=== PATIENT | male | born 2000 | race Caucasian/White ===

== ENCOUNTER 2023-01-13 15:01 | Inpatient (IN) | payer OTHER ==
[2023-01-13 15:48] LABS: Absolute Lymphocytes (CBC) 1.4 K/uL (0.7-4.9); Hematocrit 22.7 % (39.6-49.0); Lymphocytes % 23.8 % (15.3-44.8); MCV 92.5 fL (80-100); MPV 7.7 fL (7.6-11.3); Platelets 244 thou/uL (152-406); RBC Red Blood Cell Count 2.46 M/uL (4.33-5.43)
[2023-01-13 15:54] LABS: Protime INR 1.05
[2023-01-13] MEDS ORDERED: NA CHLORIDE 0.9% 1,000 ML ONE (16:04)
[2023-01-13] MEDS ORDERED: PANTOPRAZOLE 40 MG INJ ONE (16:04)
[2023-01-13 16:08] LABS: Albumin 3.5 g/dL (3.4-5.0); Bilirubin Total 0.2 mg/dL (0.2-1.0); Potassium 3.9 mEq/L (3.5-5.1); Protein, Total 6.3 g/dL (6.4-8.2)
--- NOTE | 2023-01-13 16:39 | RAD REPORT ---
EXAM DESCRIPTION: CT - Abdomen Pelvis W Contrast - 01/13/2023 4:03 pm CLINICAL HISTORY: ABD PAIN COMPARISON: No comparisons TECHNIQUE: Thin cut axial CT imaging of the abdomen and pelvis was performed following intravenous a dministration of 100 mL Isovue 300. Multiplanar reformats were generated and reviewed. All CT scans are performed using dose optimization technique as appropriate and may include automated exposure control or mA/KV adjustment according to patient size. FINDINGS: No suspicious findings in the lung bases. The liver, spleen, and pancreas show no suspicious findings. Gallbladder and biliary tree are also wi thout suspicious finding. Symmetric renal function is seen with no hydronephrosis or suspicious renal mass. No dilated bowel loops or bowel wall thickening. No free air, free fluid or inflammatory stranding. N o hernia, mass or bulky lymphadenopathy. The urinary bladder is without significant finding. No suspicious bony findings. Grade 1 spondylolisthesis at L5-S1, with degree of anterolisthesis measu ring approximately 8 millimeter. IMPRESSION: No acute intra-abdominal process. Grade 1 spondylolisthesis at L5-S1, favored to be no related to stress injury.
--- NOTE | 2023-01-13 16:59 | ER ---
Nurse's Notes [facility] Name: Steve Peter Age: 22 yrs Sex: Male : 2000 Arrival Date: 01/13/2023 Time: 15:01 Bed 17 Private MD: Diagnosis: GI Bleed, anemia, epigastric pain Presentation: 01/13 15:07 Chief complaint: Patient states: bloody stool x2 weeks, black in color. Recently me1 started having dizziness. Coronavirus screen: Vaccine status: Patient reports being unvaccinated. Ebola Screen: No symptoms or risks identified at this time. Initial Sepsis Screen: Does the patient meet any 2 criteria? No. Patient's initial sepsis screen is negative. Does the patient have a suspected source of infection? No. Patient's initial sepsis screen is negative. Risk Assessment: Do you want to hurt yourself or someone else? Patient reports no desire to harm self or others. Onset of symptoms is unknown. 15:07 Method Of Arrival: Amb[place] [facility] [place] 15:07 Acuity: ELMER 3 me1 Triage Assessment: 15:09 General: Appears comfortable, well groomed, well developed, well nourished, Behavior is me1 calm, cooperative, appropriate for age, Reports black stools x 2 weeks with recent onset of dizziness. Pain: Complains of pain in epigastric area Pain does not radiate. Pain currently is 4 out of 10 on a pain scale. Quality of pain is described as crampy, Pain began 2 weeks ago Is continuous. Neuro: Level of Consciousness is awake, alert, obeys commands, Oriented to person, place, time, situation, Appropriate for age. Cardiovascular: Capillary refill < 3 seconds Patient's skin is warm and dry. Respiratory: Airway is patent Respiratory effort is even, unlabored, Respiratory pattern is regular, symmetrical. GI: Abdomen is flat, Reports bloody stool. Historical: - Allergies: 15:09 No Known Allergies; me1 - Home Meds: 15: None [Active]; me1 - PMHx: 15:09 asthma; me1 - PSHx: 15:09 None; me1 - Immunization history:: Adult Immunizations up to date. - Social history:: Smoking status: Patient denies any tobacco usage or history of. Screenin:[facility] ED Fall Risk Assessment (Adult) History of falling in the last 3 months, ms1 including since admission No falls in past 3 months (0 pts) Confusion or Disorientation No (0 pts) Intoxicated or Sedated No (0 pts) Impaired Gait No (0 pts) Mobility Assist Device Used No (0 pt) Altered Elimination No (0 pt) Score/Fall Risk Level 0 - 2 = Low Risk. 15:13 Abuse screen: Denies threats or abuse. Nutritional screening: No deficits noted. ms1 Tuberculosis screening: No symptoms or risk factors identified. Assessment: 15:12 General: see triage assessment. ms1 20:11 General: Blood transfusion started. See transfusion administration record. . iw 21:00 Reassessment: No changes from previously documented assessment. Patient and/or family vc1 updated on plan of care and expected duration. Pain level reassessed. Patient is alert, oriented x 3, equal unlabored respirations, skin warm/dry/pink. 22:00 Reassessment: No changes from previously documented assessment. Patient and/or family vc1 updated on plan of care and expected duration. Pain level reassessed. Patient is alert, oriented x 3, equal unlabored respirations, skin warm/dry/pink. 23:00 Reassessment: No changes from previously documented assessment. Patient and/or family vc1 updated on plan of care and expected duration. Pain level reassessed. Patient is alert, oriented x 3, equal unlabored respirations, skin warm/dry/pink. Vital Signs: 15:07 BP 143 / 64; Pulse 104; Resp 17; Temp 98.3(O); Pulse Ox 98% on R/A; Weight 77.11 kg; ms1 Height 6 ft. 2 in. ; 15:53 BP 110 / 66; Pulse 98; Resp 16; Pulse Ox 100% on R/A; me1 21:00 BP 115 / 50; Pulse 70; Resp 15; Pulse Ox 100% ; vc1 22:00 BP 118 / 54; Pulse 56; Resp 15; Pulse Ox 99% ; vc1 23:00 BP 113 / 56; Pulse 79; Resp 18; Pulse Ox 99% ; vc1 15:07 Body Mass Index 21.83 (77.11 kg, 187.96 cm) [facility] [place] ED Course: 15:06 Patient arrived in ED. ms1 15:07 Danielle Hanson, SAIMA is Primary Nurse. ms1 15:09 Triage completed. me1 15:09 Arm band placed on Patient placed in an exam room. me1 15:12 Patient has correct armband on for positive identification. Placed in gown. Bed in low me1 position. Call light in reach. Side rails up X 1. Provided Education on: POC. Verbalized understanding.. 15:12 No provider procedures requiring assistance completed. me1 15:14 Keith Banegas MD is Attending Physician. sp3 15:41 Inserted saline lock: 22 gauge in right antecubital area, using aseptic technique. me1 15:42 CBC with Diff Sent. me1 15:42 CMP Sent. me1 15:42 Lipase Sent. me1 16:04 CT Abd/Pelvis - IV Contrast Only In Process Unspecified. EDMS 16:53 ABO/RH typing Sent. me1 16:53 Antibody Screen Sent. me1 17:52 Attending Physician role handed off by Keith Banegas MD ms3 17:52 Shyam Levin DO is Attending Physician. ms3 18:25 Albino Kern MD is Hospitalizing Provider. ms3 20:11 PRBC Sent. iw 23:40 Patient admitted, IV remains in place. vc1 01/14 07:06 Primary Nurse role handed off by Danielle Hanson RN ll1 07:06 Cecil Stafford, SAIMA is Primary Nurse. ll1 Administered Medications: 01/13 16:21 Drug: NS 0.9% IV 1000 ml IV at 1 bolus Per protocol; 1000 mL bolus Route: IV; Rate: 1 me1 bolus; Site: right antecubital; 17:30 Follow up: IV Status: Completed infusion iw 16:21 Drug: Pantoprazole IVP 40 mg IVP once Route: IVP; Site: right antecubital; me1 16:38 Follow up: Response: No adverse reaction me1 Medication: 15:12 VIS not applicable for this client. me1 Outcome: 16:58 ER care complete, transfer ordered by . sp3 18:25 Decision to Hospitalize by Provider. ms3 23:39 Admitted to ER Hold. Please see [facility] for further documentation. vc1 23:39 Condition: good 23:39 Instructed on the need for admit, 01/14 14:20 Patient left the ED. ll1 Signatures: Dispatcher [employer] Rosemarie Gregory RN RN Abiola Dorany, RN RN ll1 Shyam Levin, DO MAKI ms3 Keith Banegas MD MD sp3 Magali Caal, RN RN vc1 Danielle Hanson, RN RN me1
--- NOTE | 2023-01-13 16:59 | EDPHYS ---
Physician Documentation [facility] Name: Steve Peter Age: 22 yrs Sex: Male : 2000 Arrival Date: 01/13/2023 Time: 15:01 Bed 17 Private MD: ED Physician Shyam Levin HPI: 01/13 15:43 This 22 yrs old Male presents to ER via Ambulatory with complaints of Bloody Stools, sp3 Dizziness. 15:43 22-year-old male with a history of asthma presents from local [facility] for [place] sp3 complaint melena, epigastric pain for 2 weeks. Patient was seen in the [facility] there and was sent to the ER. Patient denies any other symptoms including vomiting, back pain, lower abdominal pain, syncope, near syncope, lightheadedness, neurological symptoms, intake of Pepto-Bismol or similar products, trauma, ingestion of object or substances, or any other signs or symptoms on ROS at this time. No prior history of similar symptoms in the past.. Historical: - Allergies: 15:09 No Known Allergies; me1 - Home Meds: 15:09 None [Active]; me1 - PMHx: 15:09 asthma; me1 - PSHx: 15:09 None; me1 - Immunization history:: Adult Immunizations up to date. - Social history:: Smoking status: Patient denies any tobacco usage or history of. ROS: 15:44 Constitutional: Negative for fever, chills, and weight loss, Eyes: Negative for injury, sp3 pain, redness, and discharge, ENT: Negative for injury, pain, and discharge, Neck: Negative for injury, pain, and swelling, Cardiovascular: Negative for chest pain, palpitations, and edema, Respiratory: Negative for shortness of breath, cough, wheezing, and pleuritic chest pain, Back: Negative for injury and pain, MS/Extremity: Negative for injury and deformity, Skin: Negative for injury, rash, and discoloration, Neuro: Negative for headache, weakness, numbness, tingling, and seizure, Psych: Negative for depression, anxiety, suicide ideation, homicidal ideation, and hallucinations, Allergy/Immunology: Negative for hives, rash, and allergies, Endocrine: Negative for neck swelling, polydipsia, polyuria, polyphagia, and marked weight changes, Hematologic/Lymphatic: Negative for swollen nodes, abnormal bleeding, and unusual bruising, 15:44 All other systems are negative, Exam: 15:44 Constitutional: This is a well developed, well nourished patient who is awake, alert, sp3 and in no acute distress. Head/Face: Normocephalic, atraumatic. Eyes: Pupils equal round and reactive to light, extra-ocular motions intact. Lids and lashes normal. Conjunctiva and sclera are non-icteric and not injected. Cornea within normal limits. Periorbital areas with no swelling, redness, or edema. Neck: Trachea midline, no thyromegaly or masses palpated, and no cervical lymphadenopathy. Supple, full range of motion without nuchal rigidity, or vertebral point tenderness. No Meningismus. Chest/axilla: Normal chest wall appearance and motion. Nontender with no deformity. No lesions are appreciated. Cardiovascular: Regular rate and rhythm with a normal S1 and S2. No gallops, murmurs, or rubs. Normal PMI, no JVD. No pulse deficits. Respiratory: Lungs have equal breath sounds bilaterally, clear to auscultation and percussion. No rales, rhonchi or wheezes noted. No increased work of breathing, no retractions or nasal flaring. Back: No spinal tenderness. No costovertebral tenderness. Full range of motion. Skin: Warm, dry with normal turgor. Normal color with no rashes, no lesions, and no evidence of cellulitis. MS/ Extremity: Pulses equal, no cyanosis. Neurovascular intact. Full, normal range of motion. Neuro: Awake and alert, GCS 15, oriented to person, place, time, and situation. Cranial nerves II-XII grossly intact. Motor strength 5/5 in all extremities. Sensory grossly intact. Cerebellar exam normal. Normal gait. Psych: Awake, alert, with orientation to person, place and time. Behavior, mood, and affect are within normal limits. 15:44 Abdomen/GI: Mild epigastric pain to palpation without peritoneal signs, rebound or guarding. Nonsurgical abdomen noted., Vital Signs: 15:07 BP 143 / 64; Pulse 104; Resp 17; Temp 98.3(O); Pulse Ox 98% on R/A; Weight 77.11 kg; me1 Height 6 ft. 2 in. ; 15:53 BP 110 / 66; Pulse 98; Resp 16; Pulse Ox 100% on R/A; me1 21:00 BP 115 / 50; Pulse 70; Resp 15; Pulse Ox 100% ; vc1 22:00 BP 118 / 54; Pulse 56; Resp 15; Pulse Ox 99% ; vc1 23:00 BP 113 / 56; Pulse 79; Resp 18; Pulse Ox 99% ; vc1 15:07 Body Mass Index 21.83 (77.11 kg, 187.96 cm) me1 MDM: 15:15 Patient medically screened. sp3 15:45 Data reviewed: vital signs, nurses notes, lab test result(s), radiologic studies. ED sp3 course: 22-year-old male with epigastric pain and episodic melena for 2 weeks. Consider peptic ulcer disease, gastritis, upper GI bleed, biliary pathology, pancreatitis, among others. Work-up will include laboratory values, CT scan of the abdomen pelvis and general observation. Vital signs are normal with initial pulse at 104 on arrival and we will reevaluate. We will also give Protonix and normal saline.. 16:57 ED course: Hemoglobin at 7.7 and so we will transfuse [address] scan is negative. sp3 Coagulation profile is normal. We will transfer to [facility] for GI consultation and likely endoscopy.. 18:25 Consideration of Admission/Observation Patient was admitted/placed on observation. ms3 Management of patient was discussed with the following: Hospitalist: Kelly Silva NP on behalf of Dr Kern. I considered the following discharge prescriptions or medication management in the emergency department Medications were administered in the Emergency Department. See MAR. Counseling: I had a detailed discussion with the patient and/or guardian regarding the historical points, exam findings, and any diagnostic results supporting the discharge/admit diagnosis, lab results, radiology results, the need for further work-up and treatment in the hospital. 01/13 15:15 Order name: CBC with Diff; Complete Time: 16:24 sp3 01/13 15:15 Order name: CMP; Complete Time: 16:24 sp3 01/13 15:15 Order name: Lipase; Complete Time: 16:24 sp3 01/13 15:15 Order name: PT-INR; Complete Time: 16:24 sp3 01/13 16:33 Order name: PRBC sp3 01/13 16:35 Order name: ABO/RH typing EDMS 01/13 16:35 Order name: Antibody Screen EDMS 01/13 17:53 Order name: ABO/RH no charge; Complete Time: 20:31 EDMS 01/13 19:06 Order name: Basic Metabolic Panel EDMS 01/13 19:06 Order name: Basic Metabolic Panel EDMS 01/13 19:06 Order name: CBC with Automated Diff EDMS 01/13 19:06 Order name: CBC with Automated Diff EDMS 01/13 19:06 Order name: Liver (Hepatic) Function EDMS 01/13 19:06 Order name: Liver (Hepatic) Function EDMS 01/13 15:39 Order name: CT Abd/Pelvis - IV Contrast Only; Complete Time: 16:54 sp3 01/13 15:15 Order name: IV Saline Lock; Complete Time: 15:42 sp3 01/13 15:15 Order name: Labs collected and sent; Complete Time: 15:42 sp3 01/13 15:46 Order name: Recheck VS; Complete Time: 15:53 sp3 01/13 16:33 Order name: Transfuse: 1 UNIT PRBC; Complete Time: 20:10 sp3 Administered Medications: 16:21 Drug: NS 0.9% IV 1000 ml IV at 1 bolus Per protocol; 1000 mL bolus Route: IV; Rate: 1 me1 bolus; Site: right antecubital; 17:30 Follow up: IV Status: Completed infusion iw 16:21 Drug: Pantoprazole IVP 40 mg IVP once Route: IVP; Site: right antecubital; me1 16:38 Follow up: Response: No adverse reaction me1 Disposition Summary: 01/13/23 18:25 Hospitalization Ordered Notes: Hospitalization Status: Inpatient Admission ms3 Provider: Albino Kern ms3 Condition: Stable(01/13/23 18:25) ms3 Problem: new(01/13/23 18:25) ms3 Symptoms: are unchanged(01/13/23 18:25) ms3 Bed/Room Type: Standard ms3 Location: Telemetry/MedSurg (Inpatient)(01/14/23 13:52) eb Room Assignment: [facility](01/14/23 13:52) eb Diagnosis - GI Bleed, anemia, epigastric pain ms3 Forms: - Medication Reconciliation Form ms3 - SBAR form ms3 - Leadership Thank You Letter ms3 Signatures: Dispatcher [employer] Mariola Gustafson, RN RN Alix Mendoza Marcus, DO DO ms3 Keith Banegas MD MD sp3 Danielle Hanson, RN RN me1 Rosemarie Dubose RN Corrections: (The following items were deleted from the chart) 18:24 16:58 [facility] sp3 ms3 18:24 16:58 [facility] sp3 ms3 18:24 16:58 Higher level of care sp3 ms3 18:24 16:58 Stable sp3 ms3 18:24 16:58 new sp3 ms3 18:24 16:58 have worsened sp3 ms3 18:24 16:58 GI bleed, anemia, epigastric abdominal pain sp3 ms3 20:53 18:25 Telemetry/MedSurg (Inpatient) ms3 20:53 18:25 ms3 01/14 13:52 01/13 20:53 [facility] ER HOLD cg eb 01/14 13:52 01/13 20:53 [facility]- [facility] [place]
[2023-01-13] MEDS ORDERED: DIPHENHYDRAMINE 50 MG/ML VIAL IV ONE (18:56)
[2023-01-13] MEDS ORDERED: ACETAMINOPHEN 500 MG TAB PO ONE (18:56)
[2023-01-13] MEDS ORDERED: ONDANSETRON 4 MG/2 ML VIAL IV PRN (18:56)
[2023-01-13] MEDS ORDERED: NA CHLORIDE 0.9% 250 ML IV SCH (19:00)
--- NOTE | 2023-01-13 19:10 | P.HP ---
Certification for Inpatient Patient admitted to: Observation With expected LOS: <2 Midnights Patient will require the following post-hospital care: None Practitioner: I am a practitioner with admitting privileges, knowledge of patient current condition, hospital course, and medical plan of care. Services: Services provided to patient in accordance with Admission requirements found in Title 42 Section 412.3 of the Code of Federal Regulations Patient History Date of Service: 01/13/23 Primary Care Provider: Pt incarcerated Reason for admission: Melena, anemia History of Present Illness: Mr. Peter states he began having melena and upper abdominal pain 2 weeks ago. Denies trauma, ETOH, history of bleeding before. Pt states he has recently taken motrin for abdominal pain. Pt concerned for ulcer. Hemoglobin in ED 7.7gm/dl. Request made to Hospitalist program for admission as [facility] at [facility]. Dr. Roy consult placed. Allergies No Known Allergies Allergy (Unverified 01/13/23 19:11) Home Medications: NK [No Home Meds] 01/13/23 - Past Medical/Surgical History Has patient received pneumonia vaccine in the past: No Diabetic: No Past Medical History: Patient denies medical history Past Surgical History: Patient denies surgical history - Social History Smoking Status: Never smoker Smoking therapy provided: No Alcohol use: No CD- Drugs: No Caffeine use: Yes Place of Residence: (Incarcerated) Review of Systems General: Unremarkable Eyes: Unremarkable ENT: Unremarkable Respiratory: Unremarkable Cardiovascular: Unremarkable Gastrointestinal: Abdominal Pain, Melena Genitourinary: Unremarkable Musculoskeletal: Unremarkable Integumentary: Unremarkable Neurological: Unremarkable Lymphatics: Unremarkable Physical Examination - Vital Signs Temperature: 98.5 F Blood Pressure: 119/65 Pulse: 77 Respirations: 18 Pulse Ox (%): 100 - Physical Exam General: Alert, In no apparent distress, Oriented x3 HEENT: Atraumatic Neck: Supple, 2+ carotid pulse no bruit Respiratory: Clear to auscultation bilaterally, Normal air movement Cardiovascular: No edema, Normal pulses, Regular rate/rhythm Capillary refill: <2 Seconds Gastrointestinal: Hypoactive, Other (epigastric tenderness) Musculoskeletal: No clubbing, No swelling, No contractures Integumentary: Other (pale) Neurological: Normal speech, Normal tone, Normal reflexes 2+ Lymphatics: No axilla or inguinal lymphadenopathy External genitalia: Deferred Rectal: Deferred - Studies Laboratory Data (last 24 hrs) 01/13/23 01/13/23 01/13/23 15:39 15:39 15:39 WBC 6.00 Hgb 7.7 L Hct 22.7 L Plt Count 244 PT 11.5 INR 1.05 Sodium 141 Potassium 3.9 BUN 13 Creatinine 1.03 Glucose 111 H Total Bilirubin 0.2 AST 21 ALT 33 Alkaline Phosphatase 79 Lipase 19 Assessment and Plan - Problems (Diagnosis) (1) GIB (gastrointestinal bleeding) Onset Date: ~01/03/23 Current Visit: Yes Status: Acute Plan: NPO, protonix 40mg BID, 1 unit PRBC, serial hemoglobin, consult GI for scope. Qualifiers: GI bleed type/associated pathology: melena Qualified Code(s): K92.1 - Melena Discharge Plan: Other (dept of justice) Plan to discharge in: 24 Hours - Advance Directives Does patient have a Living Will: No Does patient have a Durable POA for Healthcare: No - Code Status/Comfort Care Code Status Assessed: Yes Code Status: Full Code Critical Care: Yes (blood transfusion) Time Spent Managing Pts Care (In Minutes): 45
[2023-01-13] MEDS ORDERED: NA CHLORIDE 0.9% 250 ML ONE (19:31)
[2023-01-13] MEDS ORDERED: SODIUM CHLORIDE 0.9% 10ML INJ IV PRN (19:47)
[2023-01-14] MEDS ORDERED: D5 0.45 NS 1,000 ML IV ONE (01:57)
[2023-01-14] MEDS: D5 0.45 NS 1,000 ML IV SCH ×4 (01:58→18:13)
[2023-01-14 03:09] VITALS: BMI 21.8
[2023-01-14 04:12] LABS: Absolute Lymphocytes (CBC) 1.7 K/uL (0.7-4.9); Hematocrit 25.8 % (39.6-49.0); Lymphocytes % 35.4 % (15.3-44.8); MCV 91.9 fL (80-100); MPV 7.7 fL (7.6-11.3); Platelets 208 thou/uL (152-406); RBC Red Blood Cell Count 2.81 M/uL (4.33-5.43)
[2023-01-14 04:30] LABS: Bilirubin Direct 0.1 mg/dL (0-0.2); Bilirubin Indirect, Calculated 0.2 mg/dL (0.2-0.8); Bilirubin Total 0.3 mg/dL (0.2-1.0); Potassium 3.8 mEq/L (3.5-5.1); Protein, Total 5.4 g/dL (6.4-8.2)
--- NOTE | 2023-01-14 07:17 | P.PN ---
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[place],), No C/O voiced Review of Systems 10-point ROS is otherwise unremarkable Physical Examination - Vital Signs Temperature: 97.7 F Blood Pressure: 112/62 Pulse: 54 Respirations: 11 Pulse Ox (%): 99 - Physical Exam General: Alert, In no apparent distress, Oriented x3 HEENT: Atraumatic, Normocephalic, PERRLA Neck: Supple, 2+ carotid pulse no bruit Respiratory: Clear to auscultation bilaterally, Normal air movement Cardiovascular: No edema, Normal pulses Capillary refill: <2 Seconds Gastrointestinal: Normal bowel sounds, Tenderness (epigastric) Musculoskeletal: No clubbing, No swelling Integumentary: No rashes, No breakdown Neurological: Normal gait, Normal speech - Studies Laboratory Data (last 24 hrs) 01/13/23 01/13/23 01/13/23 15:39 15:39 15:39 WBC 6.00 Hgb 7.7 L Hct 22.7 L Plt Count 244 PT 11.5 INR 1.05 Sodium 141 Potassium 3.9 BUN 13 Creatinine 1.03 Glucose 111 H Total Bilirubin 0.2 AST 21 ALT 33 Alkaline Phosphatase 79 Lipase 19 Assessment And Plan - Plan Assessment plan GI bleeding likely secondary to NSAID use (1) GIB (gastrointestinal bleeding) NPO, protonix 40mg BID, 1 unit PRBC, serial hemoglobin, consult GI for scope. Normocytic anemia Hemoglobin 7.7, repeat today 9.1 CT of the abdomen pelvis IMPRESSION: No acute intra-abdominal process.Grade 1 spondylolisthesis at L5-S1, favored to be no related to stress injury. Trend H&H, transfuse hemoglobin less than 7 Full code Diet n.p.o. DVT SCDs Discharge Plan: Other (Prision) Plan to discharge in: 48 Hours - Code Status/Comfort Care Code Status: Full Code Physician Review: Patient Assessed, Agree with Above Assessment and Plan Critical Care: No Time Spent Managing PTS Care (In Minutes): 35
[2023-01-14] MEDS ORDERED: INFLUENZA VACCINE (for 6+ mo) 0.5 ML DOSE IMVAC ONE (08:00)
[2023-01-14] MEDS: PANTOPRAZOLE 40 MG INJ IVP SCH ×2 (09:23→20:14)
[2023-01-14] MEDS ORDERED: Ringers Lactate 1,000 ML IV ONE (14:37)
[2023-01-14] MEDS ORDERED: EPINEPHRINE/PF 1 MG/ML AMP ONE (15:08)
[2023-01-14] MEDS ORDERED: propofoL 200 MG/20 ML VIAL IV ONE ×2 (15:50→16:06)
[2023-01-14] MEDS ORDERED: LIDOCAINE 1% MPF 5 ML VIAL ONE (15:50)
[2023-01-14 16:23] VITALS: O2SAT 98
[2023-01-14] MEDS ORDERED: ONDANSETRON 4 MG/2 ML VIAL ONE (16:36)
[2023-01-15] MEDS ORDERED: ACETAMINOPHEN 500 MG TAB PO PRN (01:00)
[2023-01-15] MEDS: D5 0.45 NS 1,000 ML IV SCH ×2 (02:24→10:17)
[2023-01-15 06:16] VITALS: TEMP 97.8
--- NOTE | 2023-01-15 08:19 | P.DS ---
Admission Date: 01/14/23 Discharge Date: 01/15/23 Primary Care Provider: Pt incarcerated Disposition: DISCHARGE TO CARE HOME/SENIOR CARE Discharge Condition: FAIR Reason for Admission: Melena, anemia Consultations: GI consult - Problems (1) GIB (gastrointestinal bleeding) Onset Date: ~01/03/23 Current Visit: Yes Status: Acute Qualifiers: GI bleed type/associated pathology: melena Qualified Code(s): K92.1 - Melena Brief History of Present Illness: Mr. Peter states he began having melena and upper abdominal pain 2 weeks ago. Denies trauma, ETOH, history of bleeding before. Pt states he has recently taken motrin for abdominal pain. Pt concerned for ulcer. Hemoglobin in ED 7.7gm/dl. Request made to Hospitalist program for admission as [facility]. Dr. Roy consult placed. Hospital Course: Mr. Peter was treated for a GI bleed secondary to NSAID use, anemia. Diet was placed on nothing by mouth. PPIs were started twice daily. GI was consulted for a EGD to eval for gastric ulcers. EGD was performed. Post EGD patient was started on a clear liquid diet. Will advance to soft diet, continue PPI. Patient needs to discontinue alcohol, NSAID use. Follow-up with PCP in 1 to 2 weeks. Return to the emergency room for worsening of symptoms. Follow-up with primary care in 1 to 2 weeks. Vital Signs/Physical Exam: Temp Pulse Resp BP Pulse Ox 97.8 F 68 15 98/49 L 98 01/15/23 04:00 01/15/23 04:00 01/15/23 04:00 01/15/23 04:00 01/15/23 04:00 General: Alert, In no apparent distress, Oriented x3 HEENT: Atraumatic, Normocephalic Neck: Supple, 2+ carotid pulse no bruit Respiratory: Clear to auscultation bilaterally, Normal air movement Cardiovascular: No edema, Normal pulses Capillary refill: <2 Seconds Gastrointestinal: Normal bowel sounds, Soft and benign Musculoskeletal: No clubbing, No swelling Integumentary: No rashes, No breakdown Neurological: Normal speech, Normal strength at 5/5 x4 extr Laboratory Data at Discharge: WBC 4.80 thou/uL (4.3-10.9) 01/14/23 03:47 Hgb 9.1 g/dL (13.6-17.9) L D 01/14/23 03:47 Hct 25.8 % (39.6-49.0) L 01/14/23 03:47 Plt Count 208 thou/uL (152-406) 01/14/23 03:47 PT 11.5 SECONDS (9.5-12.5) 01/13/23 15:39 INR 1.05 01/13/23 15:39 Sodium 142 mEq/L (136-145) 01/14/23 03:47 Potassium 3.8 mEq/L (3.5-5.1) 01/14/23 03:47 BUN 11 mg/dL (7-18) 01/14/23 03:47 Creatinine 0.95 mg/dL (0.70-1.30) 01/14/23 03:47 Glucose 115 mg/dL (74-106) H 01/14/23 03:47 Total Bilirubin 0.3 mg/dL (0.2-1.0) 01/14/23 03:47 AST 19 U/L (15-37) 01/14/23 03:47 ALT 29 U/L (16-61) 01/14/23 03:47 Alkaline Phosphatase 72 U/L (45-117) 01/14/23 03:47 Lipase 19 U/L (13-75) 01/13/23 15:39 Home Medications: Albuterol Inhaler [Ventolin Inhaler*] 2 puff IH Q6H PRN 01/14/23 Pantoprazole [Protonix Tab*] 40 mg PO DAILY 30 Days #30 tab 01/15/23 New Medications: Pantoprazole [Protonix Tab*] 40 mg PO DAILY 30 Days #30 tab Diet: soft diet Activity: Ad robert Physician Review: Patient Assessed, Agree with Above Assessment and Plan Time spent managing pt's care (in minutes): 50
[2023-01-15 08:31] LABS: Hematocrit 26.8 % (39.6-49.0)
[2023-01-15] MEDS ORDERED: PANTOPRAZOLE 40 MG INJ IVP SCH (09:00)
[2023-01-15] MEDS: PANTOPRAZOLE 40 MG INJ IVP SCH (09:12)
[2023-01-15 12:45] VITALS: BP 101/78
[2023-01-15] MEDS ORDERED: PANTOPRAZOLE 40MG TABLET PO SCH (16:30)
--- NOTE | 2023-01-15 16:59 | P.PN ---
Subjective Date of Service: 01/15/23 Primary Care Provider: Pt incarcerated Chief Complaint: Melena, anemia Subjective: Improving (Hgb stable from 9.1 yesterday to 9.2 today, s/p EGD with bleeding duodenal ulcer therapy yesterday. YOKASTA self treated with Ibuprofen leading to melena and anemia, prior to admission.) Physical Examination - Vital Signs Temperature: 97.8 F Blood Pressure: 101/78 Pulse: 68 Respirations: 15 Pulse Ox (%): 99 Assessment And Plan - Current Problems (Diagnosis) (1) Melena Current Visit: Yes Status: Acute (2) Anemia Current Visit: Yes Status: Acute (3) Duodenal ulcer Current Visit: Yes Status: Acute (4) GIB (gastrointestinal bleeding) Onset Date: ~01/03/23 Current Visit: Yes Status: Acute Qualifiers: GI bleed type/associated pathology: melena Qualified Code(s): K92.1 - Melena - Plan REC: 1) continue Prilosec 40 mg po bid for 3 months and then use prn 2) avoid NSAIDs, instead use Tylenol (4 tabs per day or less) for pain prn 3) CL to [place] to GI soft diet Physician Review: Patient Assessed, Agree with Above Assessment and Plan
--- NOTE | 2023-01-15 20:22 | CON ---
Date of Consultation: 01/15/2023 Reason For Consultation: Midepigastric pain, melena, with anemia. Hemoglobin 7.7. History Of Present Illness: The patient is a 22-year-old white male with history of asthma, presente d to the hospital due to midepigastric pain and melena with some dizziness. The patient states that he has been 2 weeks with midepigastric pain. He began taking ibuprofen for this and started sufferin g from melena and black stools. The patient was brought to the emergency room for further evaluation and care. In the emergency room, his hemoglobin was noted to be 7.7. [facility] and so patient was brought to [facility] for further evaluation and car e. Past Medical History: Significant for asthma. Home Medications: None. Allergies: NKDA. Social History: He is single, no kids. No tobacco. No alcohol. Family History: Father alive with hypertension. Mother alive and well. No known diseases as per e patient. Review of Systems: Patient had midepigastric pain, melena, dizziness. He denies any nausea, vomiting, fevers, chills, h ematemesis, coffee-ground emesis, hematochezia, hemoptysis, epistaxis, hematuria, dysuria, polydipsia , muscle aches, joint aches, backaches, seizure, syncope, depression, anxiety. Physical Examination: Vital Signs: Patient is 6 feet 2 inches, 169 pounds. BMI of 21.8 kg/sq m. temperature of 98.1 degr ees Fahrenheit, pulse 97, respirations 17, blood pressure 137/65, O2 saturation 99%. General: He is a well-nourished, well-developed male, lying in bed, in no acute distress. Polite. HEENT: Normocephalic, atraumatic. Anicteric. , atraumatic. Anicteric. Pupils equal, round, and r eactive to light. Extraocular movements are intact. Oropharynx clear. Neck: Supple. No masses. Respirations: Clear to auscultation bilaterally. Cardiac: Regular rate and rhythm. No gallop or rubs. Abdomen: Positive bowel sounds. Soft. No severe tenderness in the midepigastric area. No peritone al sign. No rebound. Extremities: No clubbing, cyanosis, or edema. 2+ pulses. Neuro: Alert and oriented x3. Grossly nonfocal. . 5/5 motor. Sensation is intact to light touch. Laboratory Data: The patient has a white count of 4.8; hemoglobin of 9.1, up from 7.7 on admission; hematocrit 25.8. Patient received 1 unit of packed RBCs. Platelet count of 208, down from 244 yeste rday. Polys of 49%, lymphocytes 35%, monocytes 10%, eosinophils 5%, basophils 1%. PT 11.5, INR of 1 .05. The patient has a sodium 142, potassium 3.8, chloride 110, bicarb 29, BUN 11, creatinine of 0.9 5, glucose 115, calcium 8.3, total bilirubin 0.3, direct bilirubin 0.2, AST of 19, ALT of 29, alkalin e phosphatase 72, total protein 5.4, albumin 3.0, lipase 19. CT of abdomen and pelvis revealed no ac [place] intraabdominal process, however, the patient has a grade 1 spondylolysis at L5-S1, probably relat ed to stress injury as per the radiology report. Impression: 1.Midepigastric pain, melena, dizziness with no nausea, vomiting, fevers, chills, hematemesis, hemat ochezia, coffee-ground emesis. The patient did begin ibuprofen after midepigastric pain started appr oximately 2 weeks ago and then he started experiencing melena. His hemoglobin is down to 7.7 today. 2.Anemia. Hemoglobin 7.7. 1 unit of packed RBCs. Hemoglobin is up to 9.1 appropriately. 3.History of asthma. Recommendations: 1.Agree with packed RBCs transfusion. 2.Continue serial H and Hs, and transfuse p.r.n. 3.Continue Protonix drip. We will increase IV Protonix drip. 4.Continue IV fluids and resuscitation. 5.Keep patient n.p.o. 6.We will perform urgent EGD evaluation. EDINSON/RAJI Voice ID: [id number] Report ID: [id number]
== END 2023-01-15 19:04 | DRG 378 ==
LOC: ER 15:01 → ERHOLD 01-14 00:10 → 2ND 01-14 14:16
PROVIDERS: ADMIT Emergency Medicine; ATTEND Internal Medicine Nephrology
PROC: 30233N1 Transfusion of Nonautologous Red Blood Cells into Peripheral Vein, Percutaneous Approach (ICD-10-PCS; principal; 2023-01-13)
DX: K92.1 Melena (principal); D62 Acute posthemorrhagic anemia; T39.395A Adverse effect of other nonsteroidal anti-inflammatory drugs [NSAID], initial encounter; J45.909 Unspecified asthma, uncomplicated; D64.9 Anemia, unspecified; K26.9 Duodenal ulcer, unspecified as acute or chronic, without hemorrhage or perforation; Z79.899 Other long term (current) drug therapy
CPT/HCPCS: 36415; 74177; 80048; 80053; 80076; 83690; 85014; 85018; 85025; 85610; 86850; 86900; 86901; 86920; 88305; 88312; 96361; 96374; 99285; C9113; J0171; J2001; J2405; J2704; J7030; J7050; J7120; J7799; P9016; Q9967